=== PATIENT | female | born 1940 | race Caucasian/White ===

== ENCOUNTER → 2018-07-10 | Outpatient (CLI) | payer BC | END | disposition home or self-care (01) | LOC: STAR 10:57 | PROVIDERS: ATTEND Family Medicine | DX: Z01.818 Encounter for other preprocedural examination (principal) | CPT/HCPCS: 93005 ==

== ENCOUNTER → 2018-07-29 | Outpatient (CLI) | payer BC ==
[~2018-07-29] MED LIST: CHOL500045 PO; FURO20TA3 PO; LEVO100T PO; POTA10TA6 PO; VITA100022 PO; VITA2500 PO
== END | disposition home or self-care (01) ==
LOC: STAR 08:54
PROVIDERS: ATTEND Internal Medicine Gastroenterology
DX: Z02.9 Encounter for administrative examinations, unspecified (principal)

== ENCOUNTER 2018-08-06 10:54 | Day surgery (SDC) | payer BC ==
[~2018-08-06] VITALS: Ht 172.7 cm; Wt 70.6 kg
[2018-08-06] MEDS ORDERED: LACTATED RINGERS 1,000 ML IV SCH (11:26)
[2018-08-06] MEDS ORDERED: LIDOCAINE-MPF 1%, 2ML INFIL ONE (11:30)
[2018-08-06] MEDS ORDERED: MIDAZOLAM 1 MG/ML, 2ML ONE (12:27)
[2018-08-06] MEDS ORDERED: FENTANYL PF 100 MCG/2ML ONE (12:28)
[2018-08-06] MEDS ORDERED: PROPOFOL 10 MG/ML, 20ML ONE (12:35)
[2018-08-06] MEDS ORDERED: DEXAMETHASONE 4 MG/ML, 1ML ONE (12:35)
[2018-08-06] MEDS ORDERED: SUCCINYLCHOLINE 20 MG/ML, 10ML ONE (12:35)
[2018-08-06] MEDS ORDERED: ONDANSETRON 2MG/ML, 2ML ONE (12:38)
[2018-08-06] MEDS ORDERED: INDOMETHACIN 50 MG SUPP.RECT PR STA (13:11)
[2018-08-06] MEDS ORDERED: INDOMETHACIN 50 MG SUPP.RECT ONE (13:17)
[2018-08-06] MEDS ORDERED: ONDANSETRON 2MG/ML, 2ML IV PRN (13:30)
[2018-08-06] MEDS ORDERED: MEPERIDINE/PF 25MG/0.5ML IVPush PRN (13:30)
[2018-08-06] MEDS ORDERED: HALOPERIDOL 5 MG/ML IV PRN (13:30)
[2018-08-06] MEDS ORDERED: HYDROmorphone 1 MG/ML, 1ML IV PRN (13:30)
[2018-08-06] MEDS ORDERED: OXYcodone 5 MG/5 ML ORAL.SOL UDC PO PRN (13:30)
[2018-08-06] MEDS ORDERED: LABETALOL 5MG/ML, 20ML IV PRN (13:30)
[2018-08-06] MEDS ORDERED: hydrALAzine 20 MG/ML, 1ML IV PRN (13:30)
[2018-08-06] MEDS ORDERED: FENTANYL PF 100 MCG/2ML IV PRN (13:30)
[2018-08-06] MEDS ORDERED: ACETAMINOPHEN 325 MG TABLET PO PRN (13:30)
== END 2018-08-06 16:30 | disposition home or self-care (01) ==
LOC: OUT 10:54
PROVIDERS: ATTEND Internal Medicine Gastroenterology
DX: T85.510A Breakdown (mechanical) of bile duct prosthesis, initial encounter (principal); K80.50 Calculus of bile duct without cholangitis or cholecystitis without obstruction; Y83.8 Other surgical procedures as the cause of abnormal reaction of the patient, or of later complication, without mention of misadventure at the time of the procedure; Y92.89 Other specified places as the place of occurrence of the external cause; N18.9 Chronic kidney disease, unspecified; E03.9 Hypothyroidism, unspecified; Z90.49 Acquired absence of other specified parts of digestive tract; Z90.710 Acquired absence of both cervix and uterus
CPT/HCPCS: 43262; 43264; 74328; J0330; J1100; J2250; J2405; J2704; J3010; J7120

== ENCOUNTER 2018-12-10 10:31 | Outpatient (CLI) | payer BC ==
[2018-12-10 11:58] LABS: BASOPHILS # (AUTO) 0.03 x10^3/uL (0-0.1); BASOPHILS % (AUTO) 1 % (0-1); EOSINOPHILS # (AUTO) 0.16 x10^3/uL (0-0.4); EOSINOPHILS % (AUTO) 3 % (1-7); LYMPHOCYTES # (AUTO) 1.25 x10^3/uL (1-3.4); LYMPHOCYTES % (AUTO) 26 % (22-44); MD NO; MEAN CORPUSCULAR HEMOGLOBIN 30.1 pg (27.0-34.8); MEAN CORPUSCULAR VOLUME 88.4 fL (80-100); MEAN PLATELET VOLUME 7.6 fL (7.4-10.4); MONOCYTES # (AUTO) 0.39 x10^3/uL (0.2-0.8); MONOCYTES % (AUTO) 8 % (2-9); NEUTROPHILS # (AUTO) 3.03 x10^3/uL (1.8-6.8); NEUTROPHILS % (AUTO) 62 % (42-75); PLATELET COUNT 254 x10^3/uL (130-400); RED BLOOD COUNT 4.89 x10^6/uL (3.82-5.3); RED CELL DISTRIBUTION WIDTH 13.2 % (9.6-15.2)
[2018-12-10 13:35] LABS: CHLORIDE 105 mmol/L (98-107)
[2018-12-10 13:41] LABS: ALANINE AMINOTRANSFERASE 16 U/L (12-78); ALBUMIN 4.2 g/dL (3.4-5.0); ALKALINE PHOSPHATASE 70 U/L (45-117); ANION GAP 5 mmol/L (5-15); BILIRUBIN,TOTAL 0.6 mg/dL (0.2-1.0); CALCIUM 9.4 mg/dL (8.5-10.1); CREATININE 1.03 mg/dL (0.55-1.02); TOTAL PROTEIN 7.1 g/dL (6.4-8.2)
== END 2018-12-10 23:59 | disposition home or self-care (01) ==
LOC: STAR 10:31
PROVIDERS: ATTEND Surgery
DX: Z01.818 Encounter for other preprocedural examination (principal); K43.9 Ventral hernia without obstruction or gangrene
CPT/HCPCS: 36415; 80053; 85025; 93005

== ENCOUNTER 2018-12-14 12:21 | Day surgery (SDC) | payer BC ==
[~2018-12-14] VITALS: Ht 167.6 cm; Wt 75.8 kg
[~2018-12-14 12:21] MED LIST changes: +SUGAMMADEX 200 MG/2 ML IVPush ONE
[2018-12-14] MEDS ORDERED: LACTATED RINGERS 1,000 ML IV SCH (12:55)
[2018-12-14] MEDS ORDERED: LIDOCAINE-MPF 1%, 2ML INFIL ONE (13:00)
[2018-12-14] MEDS ORDERED: SUGAMMADEX 200 MG/2 ML IVPush ONE ×2 (15:33→16:07)
[2018-12-14] MEDS ORDERED: BUPIVACAINE/PF-EPI 0.5% 1:200K ONE (15:33)
[2018-12-14] MEDS ORDERED: PROPOFOL 10 MG/ML, 20ML ONE (15:37)
[2018-12-14] MEDS ORDERED: FENTANYL PF 100 MCG/2ML ONE (15:37)
[2018-12-14] MEDS ORDERED: ROCURONIUM 10MG/ML,5ML ONE (15:43)
[2018-12-14] MEDS ORDERED: EPHEDRINE 50 MG/ML, 1ML ONE (15:43)
[2018-12-14] MEDS ORDERED: HYDROmorphone 2 MG/ML, 1ML IVPush PRN (16:00)
[2018-12-14] MEDS ORDERED: FENTANYL PF 100 MCG/2ML IV PRN (16:00)
[2018-12-14] MEDS ORDERED: MEPERIDINE/PF 25MG/0.5ML IVPush PRN (16:00)
[2018-12-14] MEDS ORDERED: OXYcodone 5 MG/5 ML ORAL.SOL UDC PO PRN (16:00)
[2018-12-14] MEDS ORDERED: MORPHINE SULFATE 4 MG/ML, 1ML IVPush PRN (16:00)
[2018-12-14] MEDS ORDERED: HYDROcodone/APAP 7.5-325MG/15ML UDC PO PRN (16:00)
[2018-12-14] MEDS ORDERED: CEFAZOLIN 1,000 MG ONE (16:01)
[2018-12-14] MEDS ORDERED: OXYcodone 5 MG/5 ML ORAL.SOL UDC ONE (16:33)
== END 2018-12-14 17:50 | disposition home or self-care (01) ==
LOC: OUT 12:21
PROVIDERS: ATTEND Surgery
DX: K43.2 Incisional hernia without obstruction or gangrene (principal); N18.9 Chronic kidney disease, unspecified; E03.9 Hypothyroidism, unspecified; Z90.710 Acquired absence of both cervix and uterus; Z90.49 Acquired absence of other specified parts of digestive tract
CPT/HCPCS: 49560; J0690; J2704; J3010